=== PATIENT | female | born 1975 | race Hispanic/Latino ===

== ENCOUNTER 2023-02-21 21:16 | Emergency (ER) | payer OTHER ==
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
[2023-02-21] MEDS ORDERED: IBUPROFEN 400 MG TAB ONE (22:32)
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
[2023-02-22 00:27] VITALS: BP 116/68; TEMP 98.3; O2SAT 99
== END 2023-02-21 23:29 | disposition home or self-care (01) ==
LOC: ER 21:16
DX: S09.90XA Unspecified injury of head, initial encounter (principal); S16.1XXA Strain of muscle, fascia and tendon at neck level, initial encounter; V59.50XA Passenger in pick-up truck or van injured in collision with unspecified motor vehicles in traffic accident, initial encounter; I10 Essential (primary) hypertension
CPT/HCPCS: 70450; 72125; 99284